=== PATIENT | male | born 1990 | race Caucasian/White ===

== ENCOUNTER 2018-04-06 11:30 | Emergency (ER) | payer OTHER ==
[2018-04-06] MEDS ORDERED: KETOROLAC TROMETHAMINE 30 MG/ML SOL IV ONE (11:36)
[2018-04-06] MEDS ORDERED: ONDANSETRON HCL 4 MG/2 ML SOL ONE (11:36)
[2018-04-06] MEDS ORDERED: ONDANSETRON HCL 4 MG/2 ML SOL IV ONE (11:36)
[2018-04-06] MEDS ORDERED: HYDROMORPHONE 1 MG/ML SYRINGE ONE (11:36)
[2018-04-06] MEDS ORDERED: HYDROMORPHONE HCL 2 MG/ML SOL IV ONE (11:37)
[2018-04-06] MEDS ORDERED: KETOROLAC TROMETHAMINE 30 MG/ML SOL ONE (11:38)
[2018-04-06 12:06] VITALS: TEMP 97.4
[2018-04-06] MEDS ORDERED: PROCHLORPERAZINE EDISYLATE 5 MG/ML SOL IV ONE (12:10)
[2018-04-06] MEDS ORDERED: PROCHLORPERAZINE EDISYLATE 5 MG/ML SOL ONE (12:13)
[2018-04-06] MEDS ORDERED: FENTANYL 100MCG/2ML SOL IV ONE (12:23)
[2018-04-06] MEDS ORDERED: FENTANYL 100MCG/2ML SOL ONE (12:25)
[2018-04-06] MEDS ORDERED: SODIUM CHLORIDE 0.9% 1000ML 1,000 ML IV ONE ×2 (12:57→12:59)
[2018-04-06 13:56] VITALS: BP 114/73; PULSE 84; RESP 18; O2SAT 94
== END 2018-04-06 13:15 | disposition short-term general hospital (02) | DRG 440 ==
LOC: ED 11:30
DX: K85.90 Acute pancreatitis without necrosis or infection, unspecified (principal)
CPT/HCPCS: 74177; 96365; 96374; 96375; 99284; 99285; J0780; J1885; J2405; J3010; Q9967; J1170